=== PATIENT | male | born 1965 | race Asian ===

== ENCOUNTER 2022-07-08 09:34 | Inpatient (IN) | payer OTHER ==
[2022-07-07 09:08] LABS: CALCIUM 8.7 mg/dL (8.4-11.0); CREATININE 1.05 mg/dL (0.55-1.30)
[2022-07-07 09:13] LABS: EOSINOPHILS # (AUTO) 0.1 K/uL (0.0-0.4); HEMATOCRIT 39.6 % (36-54); HEMOGLOBIN 13.5 g/dL (14.0-18.0); LYMPHOCYTES # (AUTO) 0.5 K/uL (1.0-5.5); LYMPHOCYTES % (AUTO) 17.1 % (20.5-51.5); MEAN CORPUSCULAR HEMOGLOBIN 30 pg (27-31); MEAN CORPUSCULAR HGB CONC 34 % (32-36); MEAN CORPUSCULAR VOLUME 88 fL (79.0-98.0); MONOCYTES # (AUTO) 0.3 K/uL (0.0-1.0); MONOCYTES % (AUTO) 10.1 % (1.7-9.3); NEUTROPHILS # (AUTO) 2.1 K/uL (1.8-7.7); NEUTROPHILS % (AUTO) 68.8 % (40.0-70.0); PLATELET COUNT (AUTO) 234 K/uL (130-430); RED CELL DISTRIBUTION WIDTH 12.6 % (9.0-15.0); WHITE BLOOD COUNT (AUTO) 3.1 K/uL (4.8-10.8)
[~2022-07-08] VITALS: Ht 160 cm; Wt 54.0 kg
[2022-07-08] MEDS ORDERED: metroNIDAZOLE 500 mg/NS 100 ML PREMIX IV ONE (09:45)
[2022-07-08] MEDS ORDERED: CEFAZOLIN SOD 2 GM in D5W 50 ML IV ONE (09:45)
[2022-07-08] MEDS ORDERED: PROPOFOL 200MG/ 20ML VIAL (DIPRIVAN) IV ONE ×2 (11:00→12:56)
[2022-07-08] MEDS ORDERED: HEPARIN SODIUM,PORCINE 5,000 UNITS/ML VIAL ONE (11:00)
[2022-07-08] MEDS ORDERED: LR 1,000 ML IV.SOLN IV ONE ×2 (11:00→12:56)
[2022-07-08] MEDS ORDERED: NS 1000 ML IV.SOLN IV ONE ×2 (11:00→12:56)
[2022-07-08] MEDS ORDERED: NS 500 ML IV.SOLN IV ONE (11:00)
[2022-07-08] MEDS ORDERED: LIDOCAINE/EPI 1% 1:100000 20 ML VIAL ONE (11:00)
[2022-07-08] MEDS ORDERED: WATER FOR IRRIGATION,STERILE 1,000 ML IRRIG.SOLN IR ONE ×2 (11:00→12:56)
[2022-07-08] MEDS ORDERED: ONDANSETRON HCL 4 MG/2 ML VIAL ONE (12:56)
[2022-07-08] MEDS ORDERED: BUPIVACAINE /PF 0.25% 30 ML VIAL INJ ONE (12:56)
[2022-07-08] MEDS ORDERED: ROCURONIUM BROMIDE 10 MG/ML (ZEMURON) ONE (12:56)
[2022-07-08] MEDS ORDERED: SEVOFLURANE 15 MIN GAS INH ONE (12:56)
[2022-07-08] MEDS ORDERED: BACITRACIN ZINC 15 GM TOPICAL OINTMENT TP ONE (12:56)
[2022-07-08] MEDS ORDERED: METOCLOPRAMIDE HCL 10 MG/2 ML VIAL ONE (12:56)
[2022-07-08] MEDS ORDERED: fentaNYL CITRATE/PF 100 MCG/2 ML AMP ONE (12:56)
[2022-07-08] MEDS ORDERED: NS IRRIG SOLN 1000 ML IR ONE (12:56)
[2022-07-08] MEDS ORDERED: SUCCINYLCHOLINE CHLORIDE 20 MG/ML(QUELICIN) ONE (12:56)
[2022-07-08] MEDS ORDERED: BUPIVACAINE LIPOSOME/PF 266 MG/20 ML VIAL INFIL ONE (13:16)
[2022-07-08] MEDS ORDERED: ACETAMINOPHEN I.V. 1000 MG 100 ML IV ONE (16:09)
[2022-07-08] MEDS ORDERED: METOCLOPRAMIDE HCL 10 MG/2 ML VIAL IVP PRN (16:15)
[2022-07-08] MEDS ORDERED: HYDROmorphone 1 MG/ML INJ. CARTRIDGE IVP PRN ×2 (16:15→17:45)
[2022-07-08] MEDS ORDERED: LR 1,000 ML IV SCH (16:15)
[2022-07-08] MEDS ORDERED: KETOROLAC TROMETHAMINE 30 MG VIAL IVP PRN (16:15)
[2022-07-08] MEDS ORDERED: ONDANSETRON HCL 4 MG/2 ML VIAL IVP PRN ×2 (16:15→17:45)
[2022-07-08] MEDS ORDERED: HYDROmorphone 2 MG/ML VIAL IVP PRN (16:15)
[2022-07-08] MEDS ORDERED: HYDROcodone/ACETAMIN 5-325 MG TAB (NORCO/ VICODIN) PO PRN (17:45)
[2022-07-08] MEDS: LR 1,000 ML IV SCH (18:15)
[2022-07-08] MEDS: HYDROmorphone 1 MG/ML INJ. CARTRIDGE ONE ×2 (18:35→18:50)
--- NOTE | 2022-07-08 19:15 | NUR ---
RECEIVED REPORT ON PATIENT FROM ERICKSON SMITH, ASSUMED CARE, AND STARTED ASSESSMENT.
[2022-07-08 20:00] VITALS: BP_SYST 123
[2022-07-08 20:21] VITALS: BP_SYST 126
--- NOTE | 2022-07-08 22:00 | NUR ---
PATIENT REFUSED ALL OF HIS PAIN MEDICATION EXCEPT THE TYLENOL, AND HE WOULD ONLY TAKE HALF OF THE TYLENOL. HE SAID THAT PAIN MEDICATIONS MAKE HIM FEEL WEIRD. WILL CONTINUE TO MONITOR AND ASSESS FOR SAFETY AND COMFORT.
[2022-07-08] MEDS: KETOROLAC TROMETHAMINE 15 MG VIAL IVP SCH (22:41)
[2022-07-08] MEDS: GABAPENTIN 300 MG CAPSULE PO SCH (22:41)
[2022-07-08] MEDS: ACETAMINOPHEN 500 MG TABLET PO SCH (22:41)
[2022-07-08] MEDS: ceFAZolin SODIUM 1 GM in D5W 50 ML IV SCH (22:50)
[2022-07-08] MEDS: metroNIDAZOLE 500 mg/NS 100 ML IV SCH (22:50)
[2022-07-09] VITALS (7 sets, daily range): BP systolic 103–127
[2022-07-09] MEDS ORDERED: PARO-147 PO (00:51)
[2022-07-09] MEDS ORDERED: LORA-259 PO (00:51)
[2022-07-09] MEDS ORDERED: FENO160 PO (00:51)
--- NOTE | 2022-07-09 04:59 | NUR ---
PATIENT'S DAUGHTER KENNETH REMAINS AT THE BEDSIDE AND TRANSLATES FOR HIM. HE SAYS HAT HE IS IN PAIN BUT REFUSES PAIN MEDICATION. WILL CONTINUE TO MONITOR AND ASSESS FOR SAFETY AND COMFORT.
[2022-07-09] MEDS: KETOROLAC TROMETHAMINE 15 MG VIAL IVP SCH ×3 (05:23→21:24)
[2022-07-09 05:31] LABS: BASOPHILS % (AUTO) 0.1 % (0.0-2.0); EOSINOPHILS % (AUTO) 0.1 % (0.0-4.0); HEMATOCRIT 33.6 % (36-54); HEMOGLOBIN 11.5 g/dL (14.0-18.0); LYMPHOCYTES # (AUTO) 0.3 K/uL (1.0-5.5); LYMPHOCYTES % (AUTO) 4.5 % (20.5-51.5); MEAN CORPUSCULAR HEMOGLOBIN 30 pg (27-31); MEAN CORPUSCULAR HGB CONC 34 % (32-36); MEAN CORPUSCULAR VOLUME 89 fL (79.0-98.0); MONOCYTES # (AUTO) 0.6 K/uL (0.0-1.0); MONOCYTES % (AUTO) 8.7 % (1.7-9.3); NEUTROPHILS # (AUTO) 5.7 K/uL (1.8-7.7); NEUTROPHILS % (AUTO) 86.6 % (40.0-70.0); PLATELET COUNT (AUTO) 215 K/uL (130-430); RED BLOOD CELL COUNT(AUTO) 3.79 MIL/uL (4.2-6.2); WHITE BLOOD COUNT (AUTO) 6.6 K/uL (4.8-10.8)
[2022-07-09] MEDS: ceFAZolin SODIUM 1 GM in D5W 50 ML IV SCH ×2 (05:32→14:16)
[2022-07-09] MEDS: metroNIDAZOLE 500 mg/NS 100 ML IV SCH ×2 (05:33→14:15)
[2022-07-09 05:59] LABS: CALCIUM 7.7 mg/dL (8.4-11.0); CREATININE 1.02 mg/dL (0.55-1.30)
[2022-07-09] MEDS: ACETAMINOPHEN 500 MG TABLET PO SCH ×4 (07:00→21:24)
--- NOTE | 2022-07-09 07:21 | NUR ---
REPORT GIVEN TO ERICKSON LEO, AND CARE WAS TURNED OVER TO HIM.
[2022-07-09] MEDS: LR 1,000 ML IV SCH (08:14)
[2022-07-09] MEDS ORDERED: VEDO300V SQ (09:36)
[2022-07-09] MEDS ORDERED: TENO25TA PO (09:37)
[2022-07-09] MEDS: ENOXAPARIN SODIUM 40 MG/0.4 ML SYRINGE SUBCUT SCH (10:00)
[2022-07-09] MEDS: GABAPENTIN 300 MG CAPSULE PO SCH ×3 (10:01→21:24)
--- NOTE | 2022-07-09 16:28 | NUR ---
WOUND EVALUATION: Wound Consult received from DAVID Schwartz. Thank you, Giuliana Esparza, for the consult. Patient received in a Renee Bed with an IsoFlex RADHA mattress, awake, alert, and oriented. Patient is able to turn independently, moves little secondary to fear of pain. Matt Score is a 19. 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 Patient underwent preoperative chemotherapy and radiation therapy. Patient is status post robotic assisted abdominoperineal resection, tap blocks. New Colostomy present on mid lower abdomen, starting from distal descending colon to rectosigmoid junction. Recent Labs: WBC 6.6, RBC 3.79, hemoglobin 11.5, hematocrit 33.6, BUN 12, creatinine 1.02, GFR 80, glucose 138, calcium 7.7. Microbiology: MRSA screen results negative. Intrinsic factors that delay wound healing: Low Rectal Cancer with involvement of Sphincteric Complex, scar tissue and healing tissue post surgical changes. Extrinsic factors that delay wound healing: Surgical changes of ostomy site. Wound Assessment: 1. Left (near Mid) Lower Abdomen: New Colostomy site, surgically created by Dr. Mike Arana on 07/08/2022. Stoma is round, light red in color. Small amount of clear red drainage in ostomy pouch, JUAN drain has moderate serosanguineous drainage. Patient has flatus coming from colostomy site. Stoma measures 4.4 cm x 4.7 cm. Recommend: Cleanse site with mild soap and water. Only pat dry around stoma. Apply Sureprep to peristomal area. Apply [place]'s ring around the stoma. Cut Ostomy pouch to size and place over stoma. Old pouch in place for about 2 minutes to allow better adherence to skin. Perform wound care to 3 days, and as needed for pouch soiling or dislodgement. Also recommend: Encourage and assist patient as needed with repositioning every 2 hours with pillow support and off-load pressure areas with pillows for pressure re-distribution. Offload, elevate and float bilateral heels with pillows. Encourage ambulation as tolerated. Perform skin care and monitor skin integrity Q shift. Patient's spouse present, and was educated on colostomy type, location, care, diet, and what type of stool to expect from colostomy site. Gave patient and a colostomy starter kit and after consent was received, enrolled patient in [facility] Start Program. Requested several different colostomy pouch types to allow patient to try and help with selection of best colostomy pouch type for him. Recommend following supplies: [employer] [place] Remover Wipes (6223) Adapt Skin Protective Wipes (6017) [place] Adapt Barrier Rings (8853) [place] Adapt Stoma Powder (3906) Adapt Paste (82051) Prefer moldable one-piece pouch with filter; if not approved, then recommend Premier One-Piece Drainable Ostomy Pouch Flat Flextend Barrier, Lock 'n Roll Microseal Closure, Tape, Filter (2687)
--- NOTE | 2022-07-09 20:00 | NUR ---
ASSESSMENT COMPLETED AT THIS TIME PT LEFT ABDOMEN COLOSTOMY AND 2 JUAN DRAINS PLAN OF CARE REVIEWED AT BEDSIDE NO ACUTE DISTRESS WILL CONTINUE TO MONITOR AND ASSESS ENDORSES PAIN 4/10 WILL MEDICATE ORDERED CALL LIGHT IN REACH
[2022-07-10 00:46] VITALS: BP_SYST 98
[2022-07-10] MEDS: LR 1,000 ML IV SCH ×2 (00:48→17:39)
--- NOTE | 2022-07-10 04:07 | NUR ---
ALL NEEDS ANTICIPATED AND MET AT THIS TIME DAUGHTER AT BEDSIDE IV PATENT CALL LIGHT IN REACH
[2022-07-10 04:30] VITALS: BP_SYST 122
[2022-07-10 05:11] LABS: BASOPHILS % (AUTO) 0.6 % (0.0-2.0); EOSINOPHILS # (AUTO) 0.2 K/uL (0.0-0.4); EOSINOPHILS % (AUTO) 3.2 % (0.0-4.0); HEMATOCRIT 31.1 % (36-54); HEMOGLOBIN 10.7 g/dL (14.0-18.0); LYMPHOCYTES # (AUTO) 0.5 K/uL (1.0-5.5); LYMPHOCYTES % (AUTO) 10.4 % (20.5-51.5); MEAN CORPUSCULAR HEMOGLOBIN 30 pg (27-31); MEAN CORPUSCULAR HGB CONC 35 % (32-36); MEAN CORPUSCULAR VOLUME 88 fL (79.0-98.0); MONOCYTES # (AUTO) 0.5 K/uL (0.0-1.0); MONOCYTES % (AUTO) 11.2 % (1.7-9.3); NEUTROPHILS # (AUTO) 3.6 K/uL (1.8-7.7); NEUTROPHILS % (AUTO) 74.6 % (40.0-70.0); PLATELET COUNT (AUTO) 204 K/uL (130-430); RED BLOOD CELL COUNT(AUTO) 3.54 MIL/uL (4.2-6.2); RED CELL DISTRIBUTION WIDTH 12.4 % (9.0-15.0); WHITE BLOOD COUNT (AUTO) 4.9 K/uL (4.8-10.8)
[2022-07-10 05:29] LABS: CALCIUM 7.6 mg/dL (8.4-11.0); CREATININE 0.92 mg/dL (0.55-1.30)
[2022-07-10] MEDS: KETOROLAC TROMETHAMINE 15 MG VIAL IVP SCH ×3 (05:54→21:19)
[2022-07-10] MEDS: ACETAMINOPHEN 500 MG TABLET PO SCH ×4 (05:55→21:19)
[2022-07-10 08:17] VITALS: BP_SYST 117
[2022-07-10] MEDS: GABAPENTIN 300 MG CAPSULE PO SCH ×3 (09:00→21:19)
[2022-07-10] MEDS: ENOXAPARIN SODIUM 40 MG/0.4 ML SYRINGE SUBCUT SCH (09:01)
[2022-07-10 11:22] VITALS: BP_SYST 99
--- NOTE | 2022-07-10 11:41 | NUR ---
AT BEDSIDE, REFUSED FREY CATHETER TO BE DISCONTINUED NOW, REQUESTING SHE WANTS THE PATIENT TO HAVE FREY CATHETER ON FOR ONE MORE NIGHT, AND TO BE REMOVED TOMORROW MORNING. This commercial insurance underwriter(primary RN), educated the , and patient on the risk for a UTI with prolonged catheter use.
--- NOTE | 2022-07-10 15:35 | NUR ---
PATIENT WAS ACCEPT FOR HOME HEALTH CARE WITH [facility] [phone].
[2022-07-10 16:27] VITALS: BP_SYST 123
--- NOTE | 2022-07-10 16:38 | NUR ---
Dietitian Recommendations * Continue Soft (low-fiber/bland diet) * Ensure BID (ONS yields 700 kcal/day, 40 gm protein/day) * Encourage good PO intakes * RD provided colostomy MNT LP, MS, RD Please refer to Nutrition Assessment for details. Addendum: 07/10/22 at [address] Amended: Links added.
[2022-07-10 21:00] VITALS: BP_SYST 119
--- NOTE | 2022-07-10 21:15 | NUR ---
patient awake alert & patient Refuse to d/c nicolas catheter for urine they both want to wait till 0700 this AM .
--- NOTE | 2022-07-10 22:57 | NUR ---
TORADOL 15 MG IVP administer for acute pain & helpful per patient .
--- NOTE | 2022-07-11 03:33 | NUR ---
Hourly Rounding patient Resting verbally Responsive chest movement is symmetrical call dee given to patient / .
[2022-07-11] MEDS: KETOROLAC TROMETHAMINE 15 MG VIAL IVP SCH ×3 (06:35→21:13)
[2022-07-11] MEDS: ACETAMINOPHEN 500 MG TABLET PO SCH ×4 (06:35→21:14)
[2022-07-11 08:08] VITALS: BP_SYST 123
[2022-07-11 08:19] LABS: BASOPHILS % (AUTO) 0.9 % (0.0-2.0); EOSINOPHILS # (AUTO) 0.2 K/uL (0.0-0.4); EOSINOPHILS % (AUTO) 4.6 % (0.0-4.0); HEMATOCRIT 33.4 % (36-54); HEMOGLOBIN 11.4 g/dL (14.0-18.0); LYMPHOCYTES # (AUTO) 0.5 K/uL (1.0-5.5); LYMPHOCYTES % (AUTO) 11.3 % (20.5-51.5); MEAN CORPUSCULAR HEMOGLOBIN 30 pg (27-31); MEAN CORPUSCULAR HGB CONC 34 % (32-36); MEAN CORPUSCULAR VOLUME 87 fL (79.0-98.0); MONOCYTES # (AUTO) 0.4 K/uL (0.0-1.0); MONOCYTES % (AUTO) 8.4 % (1.7-9.3); NEUTROPHILS # (AUTO) 3.2 K/uL (1.8-7.7); NEUTROPHILS % (AUTO) 74.8 % (40.0-70.0); PLATELET COUNT (AUTO) 221 K/uL (130-430); RED BLOOD CELL COUNT(AUTO) 3.83 MIL/uL (4.2-6.2); RED CELL DISTRIBUTION WIDTH 12.5 % (9.0-15.0); WHITE BLOOD COUNT (AUTO) 4.3 K/uL (4.8-10.8)
[2022-07-11 08:28] LABS: CREATININE 0.9 mg/dL (0.55-1.30)
[2022-07-11] MEDS: ENOXAPARIN SODIUM 40 MG/0.4 ML SYRINGE SUBCUT SCH (09:12)
[2022-07-11] MEDS: GABAPENTIN 300 MG CAPSULE PO SCH ×3 (09:12→21:14)
[2022-07-11 11:29] VITALS: BP_SYST 108
[2022-07-11 15:15] VITALS: BP_SYST 106
[2022-07-11 19:42] VITALS: BP_SYST 109
[2022-07-12 00:19] VITALS: BP_SYST 114
--- NOTE | 2022-07-12 02:43 | NUR ---
24 HR CHART CHECK DONE.
--- NOTE | 2022-07-12 02:44 | NUR ---
Pt awake and oriented. ambulated inside room with . LLQ Colostomy with brown soft stool. 2 JUAN drainage on ally rectal area- drained light pink discharge. Pain under control by Toradol 15 mg ivp every 8hr with Tylenol 500 mg oral. V/s stable afebrile. Tolerated Soft diet. Ate 50% dinner. Addendum: 07/12/22 at 0606 by Seven Sandra, ERICKSON ALMENDAREZ Colostomy with loose stool and (+) flatus. JUAN#1 =10 ml and JUAN# 2=25 ML.
[2022-07-12] MEDS: KETOROLAC TROMETHAMINE 15 MG VIAL IVP SCH (05:57)
[2022-07-12] MEDS: ACETAMINOPHEN 500 MG TABLET PO SCH (06:35)
--- NOTE | 2022-07-12 07:25 | NUR ---
MORNING ROUNDS: PATIENT RESTING. IV SALINE LOCK. LEFT SIDE COLOSTOMY INTACT,WITH SMALL LOOSE BROWN STOOLS.RIGHT SIDE WITH SMALL INCISION X4,CLEAN AND DRY.CALL LIGHT WITH IN REACH. BED LOCKED AT LOWEST POSITION. WITH MILD PAIN WHEN PATIENT MOVED.THIS ITME,NO NEEDS PER PATIENT.
[2022-07-12 08:00] VITALS: BP_SYST 114
[2022-07-12] MEDS: GABAPENTIN 300 MG CAPSULE PO SCH (08:27)
[2022-07-12] MEDS: ENOXAPARIN SODIUM 40 MG/0.4 ML SYRINGE SUBCUT SCH (08:36)
[2022-07-12 10:51] VITALS: BP_SYST 144
[2022-07-12 11:00] VITALS: BP_SYST 144
--- NOTE | 2022-07-12 11:15 | NUR ---
D/C Patient Patient given medication reconciliation form and D/C instructions. Exit Care provided. Patient and verbalized understanding. MD discussed with patient/ thru phone the results and treatment provided.JUAN drain at the rectal area x2 intact. Nurse wheeled patient for discharge to home. Patient in stable condition, ID band removed. IV catheter removed, intact and dressing applied, no active bleeding. Continue all home medications as ordered. Patient educated on pain management.No belongings per pt's .
== END 2022-07-12 11:15 | disposition home health service (06) | DRG 331 ==
LOC: SMU 09:34 → EDSTATUS 12:00 → SMU 14:26
PROVIDERS: ADMIT Surgery; ATTEND Surgery
PROC: 8E0W0CZ Robotic Assisted Procedure of Trunk Region, Open Approach (ICD-10-PCS; 2022-07-08)
PROC: 3E0T3BZ Introduction of Anesthetic Agent into Peripheral Nerves and Plexi, Percutaneous Approach (ICD-10-PCS; 2022-07-08)
PROC: 03L Upper Arteries, Occlusion (ICD-10-PCS; 2022-07-08)
PROC: 0DTP0ZZ Resection of Rectum, Open Approach (ICD-10-PCS; 2022-07-08)
PROC: 0D1N0Z4 Bypass Sigmoid Colon to Cutaneous, Open Approach (ICD-10-PCS; principal; 2022-07-08 12:56)
DX: C20 Malignant neoplasm of rectum (principal)
CPT/HCPCS: 36415; 71046-TC; 80048; 85025; 86886; 86900; 86901; 86920; 87081; 88307; 88309; 93005; A4371; A4409; A5061; C1727; C9290; J0131; J0330; J0690; J1170; J1644; J1650; J1885; J2405; J2704; J2765; J3010; J3490; J7030; J7040; J7060; J7120